=== PATIENT | male | born 1995 | race American Indian/Alaskan Native ===

== ENCOUNTER 2016-11-28 20:11 | Emergency (ER) | payer SELFPAY ==
[2016-11-28] MEDS ORDERED: diphenhydrAMINE 50 MG/ML SDV IVPUSH ONE (20:24)
[2016-11-28] MEDS ORDERED: methylPREDNISolone Sodium Succinate 125 MG/2 ML SDV IVPUSH ONE (20:24)
[2016-11-28] MEDS ORDERED: cefTRIAXone 1 GM in Sodium Chloride 0.9% 50 ML IV ONE (20:24)
[2016-11-28 20:28] VITALS: BP 138/60
--- NOTE | 2016-11-28 20:30 | EDM.PDOC ---
ED HPI GENERAL MEDICAL PROBLEM - General Chief Complaint: Allergic Reaction Stated Complaint: BAD POISON ITCH, INFECTED, [id number] Time Seen by Provider: 11/28/16 20:26 Source of Information: Reports: Patient History Limitations: Reports: No Limitations - History of Present Illness INITIAL COMMENTS - FREE TEXT/NARRATIVE: 1 week h/o poison pearl been using calamine lotion but not working. - Related Data Allergies Allergy/AdvReac Type Severity Reaction Status Date / Time No Known Allergies Allergy Verified 11/28/16 20:27 Home Meds: Home Meds . [No Known Home Meds] 01/19/14 [History] Past Medical History - Past Health History Medical/Surgical History: Denies Medical/Surgical History Musculoskeletal History: Reports: Other (See Below) Other Musculoskeletal History: torn maniscus left knee, torn ligaments in right ankle - Infectious Disease History Infectious Disease History: Reports: MRSA Social & Family History - Tobacco Use Smoking Status *Q: Never Smoker Second Hand Smoke Exposure: Yes - Caffeine Use Caffeine Use: Reports: None - Alcohol Use Days Per Week of Alcohol Use: 0 - Recreational Drug Use Recreational Drug Use: No ED ROS ALLERGIC REACTION - Review of Systems Review Of Systems: ROS reveals no pertinent complaints other than HPI. ED EXAM GENERAL NO PERIP PULSE - Physical Exam Exam: See Below Exam Limited By: No Limitations General Appearance: Alert, WD/WN, No Apparent Distress Ears: Hearing Grossly Normal Throat/Mouth: Normal Voice, No Airway Compromise Head: Atraumatic Neck: Non-Tender, Full Range of Motion Respiratory/Chest: No Respiratory Distress Cardiovascular: Regular Rate, Rhythm GI/Abdominal: Soft, Non-Tender Neurological: Alert, Oriented, Normal Cognition, Normal Gait, No Motor/Sensory Deficits Psychiatric: Normal Affect, Normal Mood Skin Exam: Erythema, Excoriations, Rash, Other (mild excoriation) Lymphatic: No Adenopathy Course - Vital Signs Last Recorded V/S: Last Vital Signs Temp 36.8 C 11/28/16 20:20 Pulse 91 11/28/16 20:20 Resp 17 11/28/16 20:20 BP 138/60 11/28/16 20:20 Pulse Ox 98 11/28/16 20:20 - Orders/Labs/Meds Meds: Medications Discontinued Medications Generic Name Dose Route Start Last Admin Trade Name Freq PRN Reason Stop Dose Admin Diphenhydramine HCl 25 mg 11/28/16 20:24 11/28/16 20:41 Benadryl IVPUSH 11/28/16 20:25 25 mg ONETIME ONE Administration Ceftriaxone Sodium 1 gm/ 50 mls @ 100 mls/hr 11/28/16 20:24 11/28/16 20:43 Sodium Chloride IV 11/28/16 20:53 100 mls/hr ONETIME ONE Administration Methylprednisolone Sodium Succinate 125 mg 11/28/16 20:24 11/28/16 20:40 Solu-Medrol IVPUSH 11/28/16 20:25 125 mg ONETIME ONE Administration Departure - Departure Time of Disposition: 21:15 Disposition: Home, Self-Care 01 Condition: Good Clinical Impression: Rash - Discharge Information Instructions: Poison Pearl Dermatitis, [id number] Forms: ED Department Discharge Additional Instructions: 1) take 2 BENADRYL 25MG 2 to 3 times daily for itchy rash 2) keep weeping sores covered 3) don't scratch 4) continue calamine lotion 5) recheck if looks worse rx given; medrol dospak clindamycin 150mg qid x 40
== END 2016-11-28 21:27 | disposition home or self-care (01) ==
LOC: DL.ED 20:11
DX: R21 Rash and other nonspecific skin eruption (principal)
CPT/HCPCS: 96365; 96375; 99283; J0696; J1200; J2930; J7050

== ENCOUNTER 2016-12-02 03:12 | Emergency (ER) | payer SELFPAY ==
[2016-12-02] MEDS ORDERED: Clindamycin Phosphate 900 MG in Sodium Chloride 0.9% 100 ML IV ONE (03:16)
[2016-12-02] MEDS ORDERED: Dexamethasone 4 MG/ML SDV IVPUSH ONE (03:16)
--- NOTE | 2016-12-02 03:19 | EDM.PDOC ---
ED HPI GENERAL MEDICAL PROBLEM - General Chief Complaint: Skin Complaint Stated Complaint: POISON RADHA Time Seen by Provider: 12/02/16 03:17 Source of Information: Reports: Patient History Limitations: Reports: No Limitations - History of Present Illness INITIAL COMMENTS - FREE TEXT/NARRATIVE: was seen here few days ago, got IV & PO Rx was better then got worse tonight - Related Data Allergies Allergy/AdvReac Type Severity Reaction Status Date / Time No Known Allergies Allergy Verified 12/02/16 03:36 Home Meds: Home Meds . [No Known Home Meds] 01/19/14 [History] Past Medical History - Past Health History Medical/Surgical History: Denies Medical/Surgical History Musculoskeletal History: Reports: Other (See Below) Other Musculoskeletal History: torn maniscus left knee, torn ligaments in right ankle - Infectious Disease History Infectious Disease History: Reports: MRSA Social & Family History - Tobacco Use Smoking Status *Q: Never Smoker Second Hand Smoke Exposure: Yes - Caffeine Use Caffeine Use: Reports: None - Alcohol Use Days Per Week of Alcohol Use: 0 - Recreational Drug Use Recreational Drug Use: No ED ROS GENERAL - Review of Systems Review Of Systems: ROS reveals no pertinent complaints other than HPI. ED EXAM, SKIN/RASH Exam: See Below Exam Limited By: No Limitations General Appearance: Alert, WD/WN, Mild Distress, Other ([place]) Ears: Hearing Grossly Normal Throat/Mouth: Normal Voice, No Airway Compromise Head: Atraumatic Neck: Non-Tender, Full Range of Motion Respiratory/Chest: No Respiratory Distress Cardiovascular: Regular Rate, Rhythm GI/Abdominal: Soft, Non-Tender Neurological: Alert, Oriented, Normal Cognition, Normal Gait, No Motor/Sensory Deficits Psychiatric: Normal Affect, Normal Mood Skin: Warm, Dry, Normal Color Location, Skin: Generalized Characteristics: Urticarial Associated features: Warmth, Inflammation Lymphatic: No Adenopathy Course - Vital Signs Last Recorded V/S: Last Vital Signs Temp 36.4 C 12/02/16 03:20 Pulse 101 H 12/02/16 03:20 Resp 17 12/02/16 03:20 BP 160/87 H 12/02/16 03:20 Pulse Ox 98 12/02/16 03:20 - Orders/Labs/Meds Meds: Medications Discontinued Medications Generic Name Dose Route Start Last Admin Trade Name Freq PRN Reason Stop Dose Admin Dexamethasone 12 mg 12/02/16 03:16 12/02/16 03:26 Dexamethasone IVPUSH 12/02/16 03:17 12 mg ONETIME ONE Administration Clindamycin Phosphate 900 mg/ 106 mls @ 200 mls/hr 12/02/16 03:16 12/02/16 03 :28 Sodium Chloride IV 12/02/16 03:47 200 mls/hr ONETIME ONE Administration Departure - Departure Time of Disposition: 04:20 Disposition: Home, Self-Care 01 Condition: Good Clinical Impression: Contact dermatitis due to poison radha - Discharge Information Instructions: Poison Radha Dermatitis, [id number] Forms: ED Department Discharge Additional Instructions: 1) don't scratch 2) continue meds 3) recheck as needed
[2016-12-02 03:36] VITALS: BP 160/87
== END 2016-12-02 04:36 | disposition home or self-care (01) ==
LOC: DL.ED 03:12
DX: L23.7 Allergic contact dermatitis due to plants, except food (principal)
CPT/HCPCS: 96365; 96375; 99282; J1100; J7050; S0077

== ENCOUNTER 2016-12-06 15:29 | Emergency (ER) | payer SELFPAY ==
[2016-12-06 15:47] VITALS: BP 135/77
[2016-12-06] MEDS ORDERED: predniSONE 20 MG Tab PO ONE (16:33)
--- NOTE | 2016-12-06 16:39 | EDM.PDOC ---
ED HPI GENERAL MEDICAL PROBLEM - General Chief Complaint: Skin Complaint Stated Complaint: [id number] MIKE GARCIA Time Seen by Provider: 12/06/16 16:25 Source of Information: Reports: Patient History Limitations: Reports: No Limitations - History of Present Illness INITIAL COMMENTS - FREE TEXT/NARRATIVE: This 21 yo male patient reports to the ED with continued erythema and itching of his extremities. The patient was seen in the ED 8 days ago and 4 days ago with similar symptoms, but continues to have problems. Onset: Gradual Onset Date: 11/28/16 Duration: Constant Location: Reports: Upper Extremity, Left, Upper Extremity, Right, Lower Extremity, Left, Lower Extremity, Right Quality: Reports: Other Severity: Mild Improves with: Reports: None Worsens with: Reports: None Associated Symptoms: Reports: Rash - Related Data Allergies Allergy/AdvReac Type Severity Reaction Status Date / Time No Known Allergies Allergy Verified 12/02/16 03:36 Home Meds: Home Meds diphenhydrAMINE [Benadryl] 2 tab PO TID PRN 12/06/16 [History] Past Medical History - Past Health History Medical/Surgical History: Denies Medical/Surgical History HEENT History: Reports: None Cardiovascular History: Reports: None Respiratory History: Reports: None Gastrointestinal History: Reports: None Genitourinary History: Reports: None Musculoskeletal History: Reports: Other (See Below) Other Musculoskeletal History: torn maniscus left knee, torn ligaments in right ankle Neurological History: Reports: None Psychiatric History: Reports: None Endocrine/Metabolic History: Reports: None Hematologic History: Reports: None Immunologic History: Reports: None Dermatologic History: Reports: Urticaria - Infectious Disease History Infectious Disease History: Reports: MRSA - Past Surgical History HEENT Surgical History: Reports: None GI Surgical History: Reports: None Social & Family History - Tobacco Use Smoking Status *Q: Never Smoker Second Hand Smoke Exposure: Yes - Caffeine Use Caffeine Use: Reports: None - Alcohol Use Days Per Week of Alcohol Use: 0 - Recreational Drug Use Recreational Drug Use: No ED ROS GENERAL - Review of Systems Review Of Systems: ROS reveals no pertinent complaints other than HPI. ED EXAM, SKIN/RASH Exam: See Below Exam Limited By: No Limitations General Appearance: Alert, WD/WN, Moderate Distress Eye Exam: Bilateral Eye: EOMI, Normal Inspection, PERRL Ears: Normal External Exam, Normal Canal, Hearing Grossly Normal, Normal TMs Nose: Normal Inspection, Normal Mucosa, No Blood Throat/Mouth: Normal Inspection, Normal Lips, Normal Teeth, Normal Gums, Normal Oropharynx, Normal Voice, No Airway Compromise Head: Atraumatic, Normocephalic Neck: Normal Inspection, Supple, Non-Tender, Full Range of Motion Respiratory/Chest: No Respiratory Distress, Lungs Clear, Normal Breath Sounds, No Accessory Muscle Use, Chest Non-Tender Cardiovascular: Normal Peripheral Pulses, Regular Rate, Rhythm, No Edema, No Gallop, No JVD, No Murmur, No Rub GI/Abdominal: Normal Bowel Sounds, Soft, Non-Tender, No Organomegaly, No Distention, No Abnormal Bruit, No Mass (Male) Exam: Deferred Rectal (Males) Exam: Deferred Back Exam: Normal Inspection, Full Range of Motion, NT Neurological: Alert, Oriented, CN II-XII Intact, Normal Cognition, Normal Gait, Normal Reflexes, No Motor/Sensory Deficits Psychiatric: Normal Affect, Normal Mood Skin: Warm, Dry, Normal Color Location, Skin: Upper Extremity, Right, Upper Extremity, Left, Lower Extremity, Right, Lower Extremity, Left Characteristics: Patchy, Erythematous, Necrotic Associated features: Warmth, [place], Induration Lymphatic: No Adenopathy Course - Vital Signs Last Recorded V/S: Last Vital Signs Temp 36.6 C 12/06/16 15:30 Pulse 93 12/06/16 15:30 Resp 18 12/06/16 15:30 BP 135/77 12/06/16 15:30 Pulse Ox 98 12/06/16 15:30 - Orders/Labs/Meds Orders: Active Orders 24 hr Category Date Time Status predniSONE Med 12/06/16 16:33 Once 40 mg PO ONETIME ONE Departure - Departure Time of Disposition: 16:39 Disposition: Home, Self-Care 01 Condition: Fair Clinical Impression: Contact dermatitis Qualifiers: Contact dermatitis type: irritant Contact dermatitis trigger: non-food plants Qualified Code(s): L24.7 - Irritant contact dermatitis due to plants, except food - Discharge Information Instructions: Poison Pearl Dermatitis, [id number] Forms: ED Department Discharge Care Plan Goals: The patient was advised of the examination results during the visit. The patient was given an oral dose of Prednisone (40 mg) while in the ED. The patient was given a script for Prednisone (20 mg) #10 to take 2 by mouth daily for 5 days (starting 12/07/16). The patient may use topical Hydrocortisone for temporary symptom relief. The patient should follow-up with his primary care facility early next week for continued evaluation and further management. - My Orders Last 24 Hours: My Active Orders 12/06/16 16:33 predniSONE 40 mg PO ONETIME ONE - Assessment/Plan Last 24 Hours: My Active Orders 12/06/16 16:33 predniSONE 40 mg PO ONETIME ONE
== END 2016-12-06 16:49 | disposition home or self-care (01) ==
LOC: DL.ED 15:29
DX: L24.7 Irritant contact dermatitis due to plants, except food (principal)
CPT/HCPCS: 99283; A9270

== ENCOUNTER 2019-01-12 13:35 | Emergency (ER) | payer MEDICAID ==
[2019-01-12 13:47] VITALS: BP 136/86; PULSE 101
[2019-01-12] MEDS ORDERED: methylPREDNISolone Sodium Succinate 125 MG/2 ML SDV IM ONE (14:20)
--- NOTE | 2019-01-12 15:25 | EDM.PDOC ---
Scribed by Kat Fox 01/12/19 1524 for Pia Arias NP ED HPI GENERAL MEDICAL PROBLEM - General Chief Complaint: Back Pain or Injury Stated Complaint: GET BACK CHECKED Time Seen by Provider: 01/12/19 14:10 Source of Information: Reports: Patient, RN, RN Notes Reviewed History Limitations: Reports: No Limitations - History of Present Illness INITIAL COMMENTS - FREE TEXT/NARRATIVE: Patient presents to ER with complaint of low back pain. States he was lifting a cough last night. Afterwards began having a sharp pain in the low back. Admits to some tingling at times to bilateral legs. Denies saddle anesthesia. Denies incontinence of bowel or bladder. Onset Date: 01/11/19 Duration: Getting Worse Location: Reports: Back Quality: Reports: Ache Severity: Moderate Improves with: Reports: None Worsens with: Reports: None Associated Symptoms: Reports: No Other Symptoms Treatments [employer]ER: Reports: NSAIDS Left Lower Back Pain Score (Numeric/FACES): 7 - Related Data Allergies Allergy/AdvReac Type Severity Reaction Status Date / Time No Known Allergies Allergy Verified 01/12/19 13:39 Home Meds: Home Meds . [No Known Home Meds] 01/12/19 [History] Past Medical History - Past Health History Medical/Surgical History: Denies Medical/Surgical History HEENT History: Reports: None Cardiovascular History: Reports: None Respiratory History: Reports: None Gastrointestinal History: Reports: None Genitourinary History: Reports: None Musculoskeletal History: Reports: Other (See Below) Other Musculoskeletal History: torn maniscus left knee, torn ligaments in right ankle Neurological History: Reports: None Psychiatric History: Reports: None Endocrine/Metabolic History: Reports: None Hematologic History: Reports: None Immunologic History: Reports: None Dermatologic History: Reports: Urticaria - Infectious Disease History Infectious Disease History: Reports: MRSA - Past Surgical History HEENT Surgical History: Reports: None GI Surgical History: Reports: None Social & Family History - Family History Family Medical History: Noncontributory - Tobacco Use Smoking Status *Q: Never Smoker Second Hand Smoke Exposure: No - Caffeine Use Caffeine Use: Reports: None - Recreational Drug Use Recreational Drug Use: No ED ROS GENERAL - Review of Systems Review Of Systems: ROS reveals no pertinent complaints other than HPI. ED EXAM,LOWER BACK PAIN/INJURY - Physical Exam Exam: See Below Exam Limited By: No Limitations General Appearance: Alert, WD/WN, No Apparent Distress Eye Exam: Bilateral Eye: EOMI, Normal Inspection, PERRL Ears: Normal External Exam, Normal Canal, Hearing Grossly Normal, Normal TMs Nose: Normal Inspection, Normal Mucosa, No Blood Throat/Mouth: Normal Inspection, Normal Lips, Normal Teeth, Normal Gums, Normal Oropharynx, Normal Voice, No Airway Compromise Head: Atraumatic, Normocephalic Neck: Normal Inspection, Supple, Non-Tender, Full Range of Motion Respiratory/Chest: No Respiratory Distress, Lungs Clear, Normal Breath Sounds, No Accessory Muscle Use, Chest Non-Tender Cardiovascular: Normal Peripheral Pulses, Regular Rate, Rhythm, No Edema, No Gallop, No JVD, No Murmur, No Rub GI/Abdominal: Normal Bowel Sounds, Soft, Non-Tender, No Organomegaly, No Distention, No Abnormal Bruit, No Mass (Male) Exam: Deferred Rectal (Males) Exam: Deferred Back Exam: Other (back panel padder lateral) Extremities: Normal Inspection Neurological: Alert, Normal Mood/Affect, Normal Dorsiflexion, CN II-XII Intact, Normal Plantar Flexion, Normal Gait, Normal Reflexes, No Motor/Sensory Deficits , Oriented x 3 Psychiatric: Anxious Skin Exam: Warm, Dry, Intact, Normal Color, No Rash Lymphatic: No Adenopathy Course - Vital Signs Last Recorded V/S: Last Vital Signs Temp 98.1 F 01/12/19 13:40 Pulse 101 H 01/12/19 13:40 Resp 16 01/12/19 13:40 BP 136/86 01/12/19 13:40 Pulse Ox 98 01/12/19 13:40 - Orders/Labs/Meds Meds: Medications Discontinued Medications Generic Name Dose Route Start Last Admin Trade Name Freq PRN Reason Stop Dose Admin Methylprednisolone Sodium Succinate 125 mg 01/12/19 14:20 01/12/19 14:26 Solu-Medrol IM 01/12/19 14:21 125 mg ONETIME ONE Administration Orphenadrine Citrate 60 mg 01/12/19 14:21 01/12/19 14:26 Norflex IM 01/12/19 14:22 60 mg ONETIME ONE Administration - Radiology Interpretation Free Text/Narrative:: Lumbar xray: FINDINGS: Vertebrae: Normal. No acute fracture. Normal alignment. Soft tissues: Normal. IMPRESSION: Unremarkable radiograph. Thank you for allowing us to participate in the care of your patient. Dictated and Authenticated by: Elvia Jenkins MD 01/12/2019 3:12 PM Central Time ([place] & [place]) See rad report Departure - Departure Time of Disposition: 15:23 Disposition: Home, Self-Care 01 Condition: Fair Clinical Impression: Muscle strain Low back pain Qualifiers: Chronicity: acute Back pain laterality: midline Sciatica presence: without sciatica Qualified Code(s): M54.5 - Low back pain - Discharge Information *PRESCRIPTION DRUG MONITORING PROGRAM REVIEWED*: No *COPY OF PRESCRIPTION DRUG MONITORING REPORT IN PATIENT AMBER: No Instructions: Back Injury Prevention, [id number], Muscle Strain, [id number] , Back Exercises, [id number], Back Injury Prevention, Heat Therapy, Easy-to- Read Forms: ED Department Discharge Additional Instructions: May use Tylenol and/or Ibuprofen as directed RX: Prednisone, Flexeril May heat the area as tolerated Follow up with your primary care facility if no improvement I have read and agree with the documentation that has been completed regarding this visit. By signing this record, I attest that the documentation was completed in my physical presence and is an accurate record of the encounter.
== END 2019-01-12 15:28 | disposition home or self-care (01) ==
LOC: DL.ED 13:35
DX: S39.012A Strain of muscle, fascia and tendon of lower back, initial encounter (principal); X50.0XXA Overexertion from strenuous movement or load, initial encounter
CPT/HCPCS: 72100; 96372; 99283; J2360; J2930

== ENCOUNTER 2020-10-03 05:31 | Emergency (ER) | payer MEDICAID ==
[2020-10-03] MEDS ORDERED: Lidocaine 1% with EPINEPHrine 1:100,000 20 ML MDV ONE (06:39)
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
[2020-10-03 08:25] VITALS: BP 143/97; PULSE 122
[2020-10-03] MEDS ORDERED: Lidocaine 1% with EPINEPHrine 1:100,000 20 ML MDV INJECT ONE (08:25)
== END 2020-10-03 07:09 | disposition home or self-care (01) ==
LOC: DL.ED 05:31
DX: S01.01XA Laceration without foreign body of scalp, initial encounter (principal); Y04.2XXA Assault by strike against or bumped into by another person, initial encounter
CPT/HCPCS: 12002; 99283; 99283-25

== ENCOUNTER 2021-09-03 13:25 | Emergency (ER) | payer MEDICAID ==
[2021-09-03 13:48] VITALS: BP 147/89; PULSE 109
[2021-09-03] MEDS ORDERED: Diphtheria,Pertussis(Acell),Tetanus Vaccine 0.5 ML Syringe IM ONE (14:08)
[2021-09-03] MEDS ORDERED: Lidocaine 1% 30 ML SDV INJECT ONE (14:18)
[2021-09-03] MEDS ORDERED: Bacitracin Oint 1 GM U/D Packet TOP ONE (14:35)
== END 2021-09-03 14:50 | disposition home or self-care (01) ==
LOC: DL.ED 13:25
DX: S91.332A Puncture wound without foreign body, left foot, initial encounter (principal); Z23 Encounter for immunization; W45.0XXA Nail entering through skin, initial encounter
CPT/HCPCS: 73620-LT; 90471; 90715; 99283-25